=== PATIENT | male | born 1950 | race Caucasian/White ===

== ENCOUNTER 2021-07-04 13:11 | Inpatient (IN) | payer MEDICARE ==
[~2021-07-04] VITALS: Ht 175.3 cm; Wt 127.6 kg
[~2021-07-04 13:11] MED LIST: ACETAMINOPHEN325 MG PO; ALLEGRA ALLERG180 MG PO; BENADRYL25 M1 PO; CALCIUM WITH V1 EAC2 PO; DIGITEK125 MCG PO; FEOSOL325 MG PO; INSULIN NOVOLOG; LASIX40 MG PO; LIPITOR 10MG TA10 MG PO; LOMOTIL1 EACH PO; MAG-OXIDE 400M400 MG PO; METFORMIN HCL500 MG PO; MICON-GUARD 2% TOP; MIRAPEX0.25 MG PO; MULTI-VITAMIN1 EACH PO; NEOMYCIN-POLYMY10 M1 EARBOTH; NYSTATIN POWDER; PRADAXA150 MG PO; PROSCAR5 MG PO; PROTONIX 40MG T40 MG PO; PSYLLIUM; TOPROL XL 50 MG50 MG PO; TOUJEO MAX300 UNIT/1 IJ; VITAMIN B-121000 MC1 PO; ZOVIRAX200 MG PO; [UNRECOGNIZED DRUG - OTHER]; [UNRECOGNIZED DRUG - OTHER]
[2021-07-04 16:52] LABS: BASOPHIL 0.7 % (0-2); EOSINOPHIL 1.7 % (0-7); HCT 48.4 % (42.0-52.0); HGB 15.4 g/dl (13.2-18.0); MCH 30.5 pg (25.0-31.0); MCHC 31.8 g/dL (32.0-36.0); MCV 95.8 fL (78.0-100.0); MONOCYTE 19.2 % (0-12); MPV 10.2 fL (6.0-9.5); NEUTROPHIL 58.3 % (41-80); NRBC 0; PLT 111 K/uL (150-400); RBC 5.05 M/uL (4.70-6.00); RDW 15.7 % (11.5-14.0); WBC 5.4 K/uL (4.0-10.5)
[2021-07-04 17:04] LABS: BUN/CREAT RATIO (CALC) 25.2 RATIO; CREATININE 1.07 mg/dL (0.67-1.17); POTASSIUM 4.6 mmol/L (3.5-5.1)
[2021-07-04 17:26] LABS: BILIRUBIN NEGATIVE (NEGATIVE); BLOOD NEGATIVE Ery/uL (NEGATIVE); CLARITY CLEAR (CLEAR); COLOR YELLOW (YELLOW); GLUCOSE (U) NORMAL (NORMAL); LEUKOCYTES NEGATIVE Leu/uL (NEGATIVE); NITRITE NEGATIVE (NEGATIVE); PROTEIN NEGATIVE (NEGATIVE); SPECIFIC GRAVITY 1.015 (1.001-1.030); pH 8.5 (5.0-9.0)
[2021-07-04 17:59] LABS: INFLUENZA A NAA NEGATIVE (NEGATIVE)
[2021-07-04 18:12] LABS: CORONAVIRUS 2019 SARS-COV-2 POSITIVE (NEGATIVE)
[2021-07-04] MEDS ORDERED: COREG25 MG PO (22:41)
[2021-07-04] MEDS ORDERED: ALDACTONE25 MG PO ×2 (22:51→22:52)
[2021-07-05 07:22] LABS: BASOPHIL 0.6 % (0-2); EOSINOPHIL 1.3 % (0-7); HGB 13.6 g/dl (13.2-18.0); LYMPHOCYTE 22.9 % (15-48); MCH 30.6 pg (25.0-31.0); MCHC 31.6 g/dL (32.0-36.0); MCV 96.8 fL (78.0-100.0); MONOCYTE 22.3 % (0-12); MPV 10.5 fL (6.0-9.5); NEUTROPHIL 52.3 % (41-80); NRBC 0; PLT 87 K/uL (150-400); RBC 4.44 M/uL (4.70-6.00); WBC 3.1 K/uL (4.0-10.5)
[2021-07-05 08:04] LABS: ALBUMIN 2.5 g/dL (3.4-5.0); BILIRUBIN - TOTAL 1.3 mg/dL (0.2-1.0); BUN/CREAT RATIO (CALC) 22.7 RATIO; C-REACTIVE PROTEIN 2.5 mg/dL (<=0.90); CREATININE 1.1 mg/dL (0.67-1.17); GLOBULIN (CALCULATION) 2.9 g/dL; POTASSIUM 4.9 mmol/L (3.5-5.1); TOTAL PROTEIN 5.4 g/dL (6.4-8.2)
--- NOTE | 2021-07-05 18:40 | NUR ---
1700 HUMULIN SLIDING SCALE INSULIN WAS GIVEN 8 UNITS IN THE RIGHT ARM 1800 LASIX 40MG PO WAS ALSO GIVEN WAS UNABLE TO SAVE THE EMAR BEFORE MY COMPUTER SHUT DOWN AND LOCKED ME IN HIS ACCOUNT AWAITING THE ACCOUNT TO UNLOCK. NOTIFED ROUTE SERVICE REPRESENTATIVE THAT THE MEDS HAVE BEEN GIVEN.
[2021-07-06 07:04] LABS: BASOPHIL 0.9 % (0-2); EOSINOPHIL 2.8 % (0-7); HCT 39.1 % (42.0-52.0); HGB 12.6 g/dl (13.2-18.0); LYMPHOCYTE 34.7 % (15-48); MCH 30.8 pg (25.0-31.0); MCHC 32.2 g/dL (32.0-36.0); MCV 95.6 fL (78.0-100.0); MPV 9.6 fL (6.0-9.5); NRBC 0; PLT 76 K/uL (150-400); RBC 4.09 M/uL (4.70-6.00); RDW 15.8 % (11.5-14.0); WBC 2.1 K/uL (4.0-10.5)
[2021-07-06 07:06] LABS: MONOCYTE 21.1 % (0-12)
[2021-07-06 07:38] LABS: BUN/CREAT RATIO (CALC) 19.8 RATIO; CREATININE 1.21 mg/dL (0.67-1.17); POTASSIUM 4.4 mmol/L (3.5-5.1)
== END 2021-07-06 15:15 | disposition home or self-care (01) | DRG 177 ==
LOC: FER 13:11 → FMS 19:38 → FER 21:40 → FMS 23:19
PROVIDERS: Nurse Practitioner; Nurse Practitioner Family; ADMIT Internal Medicine
PROC: 8E0ZXY6 Isolation (ICD-10-PCS; principal; 2021-07-04)
DX: U07.1 COVID-19 (principal); J96.01 Acute respiratory failure with hypoxia; J12.82 Pneumonia due to coronavirus disease 2019; I48.20 Chronic atrial fibrillation, unspecified; I10 Essential (primary) hypertension; G47.33 Obstructive sleep apnea (adult) (pediatric); M19.90 Unspecified osteoarthritis, unspecified site; E11.40 Type 2 diabetes mellitus with diabetic neuropathy, unspecified; G25.81 Restless legs syndrome; K21.9 Gastro-esophageal reflux disease without esophagitis; Z99.81 Dependence on supplemental oxygen; Z85.118 Personal history of other malignant neoplasm of bronchus and lung; Z85.46 Personal history of malignant neoplasm of prostate; Z88.2 Allergy status to sulfonamides; Z88.5 Allergy status to narcotic agent; Z98.890 Other specified postprocedural states
CPT/HCPCS: 36415; 36600; 71101; 80048; 80053; 80162; 81003; 82728; 82803; 82962; 83036; 83605; 83615; 83880; 84484; 85025; 85379; 86140; 87040; 93005; 94010; 94762; J2543; J7030; J8540; U0002